=== PATIENT | female | born 1985 | race Caucasian/White ===

== ENCOUNTER 2020-02-21 15:35 | Emergency (ER) | payer BC ==
[~2020-02-21] VITALS: Ht 162.6 cm; Wt 113.4 kg
[2020-02-21] MEDS ORDERED: CLARITIN10 M2 PO (15:52)
[2020-02-21] MEDS ORDERED: LUTERA1 EACH PO (15:53)
[2020-02-21] MEDS ORDERED: FLONASE ALLERG9.9 ML NAS (15:53)
[2020-02-21] MEDS ORDERED: OMEPRAZOLE20 MG PO (17:53)
--- NOTE | 2020-02-22 17:36 | EKG ---
[facility] [address] [facility] [place], [place] [address] Signed Normal sinus rhythm Otherwise normal ECG No previous ECGs available Confirmed by CARY SOLIS DO ([id number]) on 02/22/2020 5:35:44 PM Electronically Signed By: CARY SOLIS DO 02/22/20 1736 PATIENT NAME: MAXIMILIANO GRIDER Electrocardiogram DATE OF : 89 PHYSICIAN: CARY SOLIS DO REPORT #: [id number] REPORT IS CONFIDENTIAL AND NOT TO BE RELEASED WITHOUT AUTHORIZATION
== END 2020-02-21 18:30 | disposition home or self-care (01) ==
LOC: ED 15:35
DX: R07.9 Chest pain, unspecified (principal); Z88.1 Allergy status to other antibiotic agents; Z79.899 Other long term (current) drug therapy
CPT/HCPCS: 71045; 76705; 80053; 83690; 84484; 85025; 93005; 93010; 99285-25